=== PATIENT | female | born 1970 | race Two or more races ===

== ENCOUNTER 2021-04-13 09:56 | Emergency (ER) | payer MEDICAID ==
[~2021-04-13] VITALS: Ht 160 cm; Wt 115.6 kg
--- NOTE | 2021-04-13 10:23 | NUR ---
PT PRESENTS TO ED WITH C/O LOW ENERGY, DIZZINESS, MALAISE, SOB, COUGH, SORE THROAT, STERNAL CHEST PRESSURE, HEADACHES X 2.5 WEEKS. EKG TAKEN IN TRIAGE. ALL MONITORS IN PLACE. EDMD VANBIBBER AT BEDSIDE FOR INITIAL ASSESSMENT, AWARE OF REPEAT BP 187/139.
[2021-04-13] MEDS ORDERED: ASPIRIN 81 MG TABLET CHEW ONE (10:39)
[2021-04-13] MEDS ORDERED: NITROGLYCERIN SINGLE TAB 0.4 MG SL ONE (10:39)
[2021-04-13] MEDS: NITROGLYCERIN SINGLE TAB 0.4 MG SL PRN ×2 (11:01→11:07)
--- NOTE | 2021-04-13 11:07 | NUR ---
PIV PLACED, NITRO ADMIN PER EMAR. PT STATES REDUCTION OF CHEST PRESSURE FROM 7/10 TO 5/10 WITH FIRST DOSE. SECOND DOSE GIVEN WITH PT PERMISSION. ALL MONITORS IN PLACE. SINUS TACH RATE 110'S WITH NO ECTOPY. SPO2 90% ON ROOM AIR, OXYGEN APPLIED AT 2L/MIN, NOW SATURATING 94-95%. PT A&O, RESPS EVEN AND UNLABORED, NADN.
--- NOTE | 2021-04-13 11:12 | NUR ---
CHEST PRESSURE NOW INCREASED 6/10 FOLLOWING SECOND DOSE OF NITRO, THIRD DOSE DEFERRED.
[2021-04-13 11:21] LABS: BASOPHILS % (AUTO) 1 % (0-1); EOSINOPHILS % (AUTO) 0 % (1-7); LYMPHOCYTES % (AUTO) 31 % (22-44); MEAN CORPUSCULAR HEMOGLOBIN 26.7 pg (27.0-34.8); MEAN CORPUSCULAR HGB CONC 33.9 g/dL (32.4-35.8); MEAN PLATELET VOLUME 7.9 fL (7.4-10.4); MONOCYTES % (AUTO) 11 % (2-9); NEUTROPHILS % (AUTO) 57 % (42-75); PLATELET COUNT 176 x10^3/uL (130-400); RED BLOOD COUNT 5.53 x10^6/uL (3.82-5.3); RED CELL DISTRIBUTION WIDTH 15.4 % (9.6-15.2)
[2021-04-13 11:26] LABS: ALANINE AMINOTRANSFERASE 22 U/L (12-78); ALBUMIN 3.4 g/dL (3.4-5.0); ANION GAP 11 mmol/L (5-15); CALCIUM 8.4 mg/dL (8.5-10.1); CHLORIDE 102 mmol/L (98-107); CREATININE 0.59 mg/dL (0.55-1.02)
[2021-04-13 11:30] LABS: ALKALINE PHOSPHATASE 72 U/L (45-117); BILIRUBIN,TOTAL 0.6 mg/dL (0.2-1.0); TOTAL PROTEIN 7.4 g/dL (6.4-8.2); TROPONIN I < 0.015 ng/mL (0.000-0.045)
[2021-04-13] MEDS ORDERED: SODIUM CHLORIDE FLUSH 10ML SYR IVF ONE (11:30)
[2021-04-13] MEDS ORDERED: ASPIRIN 81 MG TABLET CHEW PO ONE (11:30)
[2021-04-13] MEDS ORDERED: MORPHINE SULFATE 4 MG/ML, 1ML IVPush ONE (11:30)
--- NOTE | 2021-04-13 11:42 | NUR ---
FOLLOWING NITRO ADMINISTRATION, PT STATES CHEST PAIN IS BETTER BUT HURTS TO TAKE A DEEP BREATH, STATES PAIN WHEN BREATHING DEEPLY /10. PT A&O, RESPS EVEN AND UNLABORED, VSS.
[2021-04-13] MEDS ORDERED: MORPHINE SULFATE 4 MG/ML, 1ML ONE (11:50)
--- NOTE | 2021-04-13 12:04 | NUR ---
PT MEDICATED FOR 6/10 PAIN PER EMAR, TOLERATED WELL. PT STATES PAIN HAS DECREASED TO 3/10. VSS, RESPS EVEN AND UNLABORED, NADN.
--- NOTE | 2021-04-13 12:11 | NUR ---
PT TO CT
--- NOTE | 2021-04-13 12:23 | NUR ---
PT BACK FROM CT
[2021-04-13] MEDS ORDERED: OMNIPAQUE 350 MG/ML, 100ML BOTTLE ONE (12:29)
[2021-04-13] MEDS ORDERED: AZITHROMYCIN 500 MG in SODIUM CHLORIDE 0.9% 250 ML IV ONE (13:00)
[2021-04-13] MEDS ORDERED: CEFTRIAXONE 1,000 MG in DEXTROSE 5% 50 ML IVPB ONE (13:00)
--- NOTE | 2021-04-13 13:37 | NUR ---
BC DRAWN X2 PRIOR TO ABX ADMIN
--- NOTE | 2021-04-13 14:00 | NUR ---
PT RESTING IN BED, ABX FLUIDS INFUSING, VSS, ALL MONITORS ATTACHED, NSR, NADN. CALL LIGHT IN REACH, NO COMPLAINTS AT THIS TIME.
[2021-04-13 14:22] VITALS: BP 158/84
--- NOTE | 2021-04-13 14:43 | NUR ---
XIN DE LA CRUZ AT BEDSIDE TO DISCUSS POC. AWARE OF PT WISHES TO NOT BE ADMITTED, MD ORDER TO CHANGE IV ABX TO PO THEN POSSIBLE DC.
[2021-04-13] MEDS ORDERED: AZITHROMYCIN 250 MG TABLET ONE (14:55)
[2021-04-13] MEDS ORDERED: AZITHROMYCIN 500 MG TABLET PO ONE (15:00)
--- NOTE | 2021-04-13 15:18 | NUR ---
PT EDUCATED ON DISCHARGE INSTRUCTIONS AND FOLLOW-UP/RETURN CRITERIA, VERBALIZED UNDERSTANDING. NO COMPLAINTS AT TIME OF DSICHARGE, VSS, AMBULATORY WITH STEADY GAIT TO DISCHARGE.
== END 2021-04-13 15:22 | disposition home or self-care (01) ==
LOC: ED 10:36 → EDIP 14:10 → UNDOADMIN 14:10
DX: U07.1 COVID-19 (principal); J12.82 Pneumonia due to coronavirus disease 2019; J96.00 Acute respiratory failure, unspecified whether with hypoxia or hypercapnia
CPT/HCPCS: 36415; 71045; 71275; 80053; 82728; 83605; 83615; 84145; 84484; 85025; 85379; 86140; 87040; 93005; 96365; 96375; 99285; J0696; J2270; Q9967; U0003; U0005